=== PATIENT | female | born 1940 | race Caucasian/White ===

== ENCOUNTER 2018-10-16 11:15 | Outpatient (RCR) | payer MEDICARE, OTHER, SELFPAY ==
--- NOTE | 2018-10-02 14:02 | PT.OIE ---
Current Diagnoses Benign paroxysmal vertigo, right ear (10/02/18) Dizziness and giddiness (10/02/18) Provider Visit Care Team Role Provider Type Steven Hewitt DO Primary Care Provider Non-Staff Specialty: Family Practice Address: [address], [phone] Email: Steve Rutherford MD Attending Provider Physician Specialty: Ear, Nose, Throat Address: [address] [place] [address], [id number] Email: Physical Therapy Initial Evaluation PT-OP-A Visit Information Start: 10/02/18 13:47 Freq: Status: Active Protocol: Document 10/02/18 09:45 DCW (Rec: 10/02/18 14:02 DCW [id number]) Out-Patient Physical Therapy Visit Information Visit Information Visit Type Initial Evaluation Visit Start Time 09:45 Visit Stop Time 10:25 Total Visit Minutes 40 Visit Number [address] ENGINEER Visits 0 Evaluation Information Evaluation Date 10/02/18 PT-OP-B Current Condition Start: 10/02/18 13:47 Freq: Status: Active Protocol: Document 10/02/18 09:45 DCW (Rec: 10/02/18 14:02 DCW [id number]) Current Condition History of Current Condition Onset Date 2 years Current Complaints Position-dependent vertigo History of Current Condition Pt is a 78 year old female complaining of a two year history of motion-induced vertigo. Pt reports episodes last about 30 seconds. Symptoms are provoked by looking up, laying back in bed , rolling in bed, or bending over to pet her dogs. Pt admits that when her symptoms began two years ago, she had been in her shower, leaned her head back, and fell and hit her head. Pt is, however, unsure if the dizziness began in the shower and that was the cause of her fall, or if the dizziness began after she hit her head in the fall. Pt denies recent hearing changes, tinnitus, diplopia, dysarthria, discoordination, or decreased mentation/ consciousness. Pt reports symptoms are waxing/waning in nature. Pt denies hx of arrhythmia, head trauma, seizure, back/neck problems, CVA, anxiety/panic disorders, or excessive smoking or drinking. Pt does report a past history of HTN, hyperlipidemia, and diabetes, however reports that they are all well controlled with medication. Prior Functional Status Baseline Function- ADL's Independent Baseline Function- Mobility Independent Current Functional Impairments (Reported) Functional Limitations- ADL's Rotational vertigo with position changes PT-OP-C Subjective Start: 10/02/18 13:47 Freq: Status: Active Protocol: Document 10/02/18 09:45 DCW (Rec: 10/02/18 14:02 DCW [id number]) OP-PT Subjective Patient Comments Patient Reported Progress Same Patient Questionnaires Dizziness Handicap Inventory DHI Score 36% DHI Functional Impairment 20 to 39% Impaired (Score 20- 39) PT-OP-O Vestibular Start: 10/02/18 13:47 Freq: Status: Active Protocol: Document 10/02/18 09:45 DCW (Rec: 10/02/18 14:02 DCW [id number]) Vestibular Assessment Screening Tests Vestibular Artery Screen Negative Auditory Tests Wilson Test Negative Rinne Test Negative Air Conduction Results Equal Visual Testing Smooth Pursuits Horizontal Negative Smooth Pursuits Vertical Negative Saccades Horizontal Negative Gaze Evoked Nystagmus With Fixation Negative Gaze Evoked Nystagmus Without Fixation Negative Heave Test Positive Bilateral Thrust Head Positive Bilateral Head Shake Negative Spontaneous Nystagmus Negative Positional Testing Thomas-Hallpike Positive Right Negative Left Upbeating < 60 Seconds Comments Vestibular Comments Thrust/heave tests mildly positive bilaterally PT-OP-Q Treatments Start: 10/02/18 13:47 Freq: Status: Active Protocol: Document 10/02/18 09:45 DCW (Rec: 10/02/18 14:02 DCW [id number]) Canalithic Repositioning BPPV Treatment [place] Affected Canal(s) Right posterior Reps x2 Comments First rep: Symptoms in 1st and 3rd positions Second rep: No symptoms PT-OP-T Assessment and Plan Start: 10/02/18 13:47 Freq: Status: Active Protocol: Document 10/02/18 09:45 DCW (Rec: 10/02/18 14:02 DCW [id number]) Physical Therapy Assessment Rehab Potential Rehabilitation Potential Excellent Evaluation Complexity Number of Personal Factors/Comorbidities 1-2 Number of Body Systems Impaired 1-2 Clinical Presentation at Evaluation Unstable Impairments Impairments Balance Functional Activities Gait Vestibular Goals Three Impairment Pt scored 36% disability on DHI Short Term Goal (STG) Pt to score <10% disability on DHI STG Duration 10/16/18 Two Impairment Positive R [place]-Hallpike Short Term Goal (STG) Negative Hallpike bilaterally STG Duration 10/16/18 One Impairment Pt experiences vertigo with rolling in bed Short Term Goal (STG) Pt to experience no episodes of vertigo with position changes STG Duration 10/16/18 Assessment Summary Assessment During right [place]-Hallpike test , pt complained of vertigo and demonstrated up-beating, torsional nystagmus lasting approximately 10 seconds, consistent with diagnosis of right-sided posterior canal BPPV, canalithiasis-type. Pt was treated with a right-sided Mahogany maneuver. Pt complained of symptoms in the first and third position, which is normally indicative of a successful treatment. Further positional testing was negative. Pt was educated on BPPV, expectations for treatment, possible recurrence , and post-Mahogany restrictions. Pt to return in ~1 week for a follow-up appointment, and intermittently afterward as indicated for treatment of BPPV. Physical Therapy Plan Frequency and Duration Frequency of Treatment as indicated for Tx Duration of Treatment 6 weeks Plan of Care Start Date 10/02/18 Plan of Care End Date 11/13/18 Therapeutic Interventions Therapeutic Interventions Canalithic Repositioning Manual Therapy Neuromuscular Re-education Vestibular Rehabilitation Next Visit Focus/Plan Next Note Type Treatment Note Next Visit Plan Positional re-testing, CRM as indicated.
--- NOTE | 2018-10-02 14:02 | PT.OPPOC ---
Current Diagnoses Benign paroxysmal vertigo, right ear (10/02/18) Dizziness and giddiness (10/02/18) Provider Visit Care Team Role Provider Type Steven Hewitt DO Primary Care Provider Non-Staff Specialty: Family Practice Address: [address] [place] [address], [phone] Email: Steve Rutherford MD Attending Provider Physician Specialty: Ear, Nose, Throat Address: [address] [place] [address], [id number] Email: Plan Of Care PT-OP-T Assessment and Plan Start: 10/02/18 13:47 Freq: Status: Active Protocol: Document 10/02/18 09:45 DCW (Rec: 10/02/18 14:02 DCW [id number]) Physical Therapy Assessment Rehab Potential Rehabilitation Potential Excellent Evaluation Complexity Number of Personal Factors/Comorbidities 1-2 Number of Body Systems Impaired 1-2 Clinical Presentation at Evaluation Unstable Impairments Impairments Balance Functional Activities Gait Vestibular Goals Three Impairment Pt scored 36% disability on DHI Short Term Goal (STG) Pt to score <10% disability on DHI STG Duration 10/16/18 Two Impairment Positive R Thomas-Hallpike Short Term Goal (STG) Negative Hallpike bilaterally STG Duration 10/16/18 One Impairment Pt experiences vertigo with rolling in bed Short Term Goal (STG) Pt to experience no episodes of vertigo with position changes STG Duration 10/16/18 Assessment Summary Assessment During right Thomas-Hallpike test , pt complained of vertigo and demonstrated up-beating, torsional nystagmus lasting approximately 10 seconds, consistent with diagnosis of right-sided posterior canal BPPV, canalithiasis-type. Pt was treated with a right-sided Mahogany maneuver. Pt complained of symptoms in the first and third position, which is normally indicative of a successful treatment. Further positional testing was negative. Pt was educated on BPPV, expectations for treatment, possible recurrence , and post-Mahogany restrictions. Pt to return in ~1 week for a follow-up appointment, and intermittently afterward as indicated for treatment of BPPV. Physical Therapy Plan Frequency and Duration Frequency of Treatment as indicated for Tx Duration of Treatment 6 weeks Plan of Care Start Date 10/02/18 Plan of Care End Date 11/13/18 Therapeutic Interventions Therapeutic Interventions Canalithic Repositioning Manual Therapy Neuromuscular Re-education Vestibular Rehabilitation Next Visit Focus/Plan Next Note Type Treatment Note Next Visit Plan Positional re-testing, CRM as indicated. Plan of Care Dates Plan of Care Start Date 10/02/18 Plan of Care End Date 11/13/18 Please Sign and Return: I have reviewed this Plan of Care and certify that the skilled therapy services above are required to meet the patient?s needs. Physician Signature Date Printed Name and Credentials Clinical Instructor Signature Printed Name and Credentials
--- NOTE | 2018-10-16 11:42 | PT.OTN ---
Current Diagnoses Dizziness and giddiness (10/16/18) Physical Therapy Treatment Note PT-OP-A Visit Information Start: 10/02/18 13:47 Freq: Status: Active Protocol: Document 10/16/18 11:15 DCW (Rec: 10/16/18 11:41 DCW [id number]) Out-Patient Physical Therapy Visit Information Visit Information Visit Type Treatment Note Visit Start Time 11:15 Visit Stop Time 11:40 Total Visit Minutes 25 Visit Number 2 Evaluation Information Evaluation Date 10/02/18 PT-OP-B Current Condition Start: 10/02/18 13:47 Freq: Status: Active Protocol: Document 10/02/18 09:45 DCW (Rec: 10/02/18 14:02 DCW [id number]) Current Condition History of Current Condition Onset Date 2 years Current Complaints Position-dependent vertigo History of Current Condition Pt is a 78 year old female complaining of a two year history of motion-induced vertigo. Pt reports episodes last about 30 seconds. Symptoms are provoked by looking up, laying back in bed , rolling in bed, or bending over to pet her dogs. Pt admits that when her symptoms began two years ago, she had been in her shower, leaned her head back, and fell and hit her head. Pt is, however, unsure if the dizziness began in the shower and that was the cause of her fall, or if the dizziness began after she hit her head in the fall. Pt denies recent hearing changes, tinnitus, diplopia, dysarthria, discoordination, or decreased mentation/ consciousness. Pt reports symptoms are waxing/waning in nature. Pt denies hx of arrhythmia, head trauma, seizure, back/neck problems, CVA, anxiety/panic disorders, or excessive smoking or drinking. Pt does report a past history of HTN, hyperlipidemia, and diabetes, however reports that they are all well controlled with medication. Prior Functional Status Baseline Function- ADL's Independent Baseline Function- Mobility Independent Current Functional Impairments (Reported) Functional Limitations- ADL's Rotational vertigo with position changes PT-OP-C Subjective Start: 10/02/18 13:47 Freq: Status: Active Protocol: Document 10/16/18 11:15 DCW (Rec: 10/16/18 11:42 DCW [id number]) OP-PT Subjective Patient Comments Patient Comments Pt reports she has not had any noticeable symptoms since her evaluation two weeks ago. PT-OP-O Vestibular Start: 10/02/18 13:47 Freq: Status: Active Protocol: Document 10/16/18 11:15 DCW (Rec: 10/16/18 11:41 DCW [id number]) Vestibular Assessment Positional Testing [place]-Hallpike Positive Right Negative Left Upbeating < 60 Seconds PT-OP-Q Treatments Start: 10/02/18 13:47 Freq: Status: Active Protocol: Document 10/16/18 11:15 DCW (Rec: 10/16/18 11:41 DCW [id number]) Canalithic Repositioning BPPV Treatment Mahogany Affected Canal(s) Right posterior Reps x2 Comments First rep: Symptoms in 1st and 3rd positions Second rep: Very mild symptoms in 1st position PT-OP-T Assessment and Plan Start: 10/02/18 13:47 Freq: Status: Active Protocol: Document 10/16/18 11:15 DCW (Rec: 10/16/18 11:41 DCW [id number]) Physical Therapy Assessment Impairments Impairments Balance Functional Activities Gait Vestibular Goals Three Impairment Pt scored 36% disability on DHI Short Term Goal (STG) Pt to score <10% disability on DHI STG Duration 10/31/18 Two Impairment Positive R [place]-Hallpike Short Term Goal (STG) Negative Hallpike bilaterally STG Duration 10/31/18 One Impairment Pt experiences vertigo with rolling in bed Short Term Goal (STG) Pt to experience no episodes of vertigo with position changes STG Duration 10/31/18 Assessment Summary Assessment Pt again demonstrated a positive right rand-hallpike test, less severe vs last visit, but responded well to treatment. Second test was very mildly positive, with nystagmus present for approximately 5 beats. A third test was not performed, as it would be unreliable due to the fatigable nature of the symptoms. Physical Therapy Plan Frequency and Duration Frequency of Treatment as indicated for Tx Duration of Treatment 6 weeks Plan of Care Start Date 10/02/18 Plan of Care End Date 11/13/18 Therapeutic Interventions Therapeutic Interventions Canalithic Repositioning Manual Therapy Neuromuscular Re-education Vestibular Rehabilitation Next Visit Focus/Plan Next Note Type Treatment Note Next Visit Plan Positional re-testing, CRM as indicated.
--- NOTE | 2018-12-22 10:54 | PT.OPDS ---
Current Diagnoses Dizziness and giddiness (10/16/18) Provider Visit Care Team Role Provider Type Steven Hewitt DO Primary Care Provider Non-Staff Specialty: Family Practice Address: [address], [address] Email: Steve Rutherford MD Attending Provider Physician Specialty: Ear, Nose, Throat Address: [address] [place] [address], [id number] Email: Visit Number Visit Number 2 Discharge Summary PT-OP-B Current Condition Start: 10/02/18 13:47 Freq: Status: Active Protocol: Document 10/02/18 09:45 DCW (Rec: 10/02/18 14:02 DCW [id number]) Current Condition History of Current Condition Onset Date 2 years Current Complaints Position-dependent vertigo History of Current Condition Pt is a 78 year old female complaining of a two year history of motion-induced vertigo. Pt reports episodes last about 30 seconds. Symptoms are provoked by looking up, laying back in bed , rolling in bed, or bending over to pet her dogs. Pt admits that when her symptoms began two years ago, she had been in her shower, leaned her head back, and fell and hit her head. Pt is, however, unsure if the dizziness began in the shower and that was the cause of her fall, or if the dizziness began after she hit her head in the fall. Pt denies recent hearing changes, tinnitus, diplopia, dysarthria, discoordination, or decreased mentation/ consciousness. Pt reports symptoms are waxing/waning in nature. Pt denies hx of arrhythmia, head trauma, seizure, back/neck problems, CVA, anxiety/panic disorders, or excessive smoking or drinking. Pt does report a past history of HTN, hyperlipidemia, and diabetes, however reports that they are all well controlled with medication. Prior Functional Status Baseline Function- ADL's Independent Baseline Function- Mobility Independent Current Functional Impairments (Reported) Functional Limitations- ADL's Rotational vertigo with position changes PT-OP-C Subjective Start: 10/02/18 13:47 Freq: Status: Active Protocol: Document 10/16/18 11:15 DCW (Rec: 10/16/18 11:42 DCW [id number]) OP-PT Subjective Patient Comments Patient Comments Pt reports she has not had any noticeable symptoms since her evaluation two weeks ago. PT-OP-O Vestibular Start: 10/02/18 13:47 Freq: Status: Active Protocol: Document 10/16/18 11:15 DCW (Rec: 10/16/18 11:41 DCW [id number]) Vestibular Assessment Positional Testing Thomas-Hallpike Positive Right Negative Left Upbeating < 60 Seconds PT-OP-T Assessment and Plan Start: 10/02/18 13:47 Freq: Status: Active Protocol: Document 12/22/18 10:51 DCW (Rec: 12/22/18 10:54 DCW [id number]) Physical Therapy Assessment Goals Three Impairment Pt scored 36% disability on DHI Short Term Goal (STG) Pt to score <10% disability on DHI STG Duration 10/31/18 Two Impairment Positive R Thomas-Hallpike Short Term Goal (STG) Negative Hallpike bilaterally STG Duration 10/31/18 One Impairment Pt experiences vertigo with rolling in bed Short Term Goal (STG) Pt to experience no episodes of vertigo with position changes STG Duration 10/31/18 Assessment Summary Assessment Following her follow-up visit, pt called the clinic and cancelled all remaining appointments, as she was feeling better. She has now not been seen in more than two months, and will be discharged from skilled vestibular therapy. Physical Therapy Plan Discharge Physical Therapy Discharge Reasons No Longer Attending PT Next Visit Focus/Plan Next Note Type Discharge Summary
== END 2018-10-16 12:15 ==
LOC: PHYS 11:15
PROVIDERS: PCP Family Medicine; Visit Provider Otolaryngology
DX: R42 Dizziness and giddiness (principal)
CPT/HCPCS: 95992; 97140; 97161

== ENCOUNTER 2023-07-18 14:48 | Emergency (ER) | payer MEDICARE, OTHER, SELFPAY ==
[2023-07-18 14:55] VITALS: BP 196/90; PULSE 110; RESP 18; TEMP 36.4; O2SAT 96; BMI 20.1
[2023-07-18 15:10] VITALS: BP 179/106
--- NOTE | 2023-07-18 15:12 | PC.NURSE ---
Pt came to the emergency dept today because she started have a nose bleed while at her [employer] and she takes eliquis. pt report no pain, but does state that she has been a little nauseous due to swallowing blood. pt denies any dizziness/lightheadedness. pt has hx of afib and htn. a&ox4
--- NOTE | 2023-07-18 15:19 | ED.GENADULT ---
HPI - General Adult General Chief complaint: Nasal Problem Stated complaint: bloody nose/[facility] sent Time Seen by Provider: 07/18/23 15:14 Source: patient Mode of arrival: Wheelchair History of Present Illness HPI narrative: Patient is an 83-year-old female. She is on Eliquis. Earlier today she started to have a nosebleed. She was seen at an outside walk-in clinic. Had a rhino rocket placed in the right nostril. She was sent to the emergency department because of continued bleeding. She denies any trauma. She has had nosebleeds in the past. Related Data Allergies Allergy/AdvReac Type Severity Reaction Status Date / Time No Known Drug Allergies Allergy Verified 07/18/23 14:59 Review of Systems ENT Ears, Nose, Mouth, and Throat: Reports system reviewed and no additional complaints, except as documented Respiratory Respiratory: Reports system reviewed and no additional complaints, except as documented Hematologic/Lymphatic On Anticoagulants: Yes Patient History Social History Smoking Status: Former smoker Smoking Status: Former smoker alcohol intake frequency: 0-2 drinks per day Substance Use Type: does not use Exam Initial Vital Signs Initial Vital Signs: Vital Signs Temperature 97.5 F L 07/18/23 14:55 Pulse Rate 110 H 07/18/23 14:55 Respiratory Rate 18 07/18/23 14:55 Blood Pressure 196/90 H 07/18/23 14:55 Pulse Oximetry 96 07/18/23 14:55 Oxygen Delivery Method Room Air 07/18/23 14:55 Const General: cooperative and comfortable HENMT Nose: epistaxis and other (Oozing from left nostril. Rhino rocket in place right) Resp Effort & Inspection: normal respiratory effort Skin General: no rashes or lesions noted Neuro General: patient alert, patient awake, patient oriented x3 and moves all extremities Extrem General: capillary refill normal Procedures Epistaxis Control Nostril: right Nose Prepped With: oxymetazoline Direct Inspection: yes Clots Removed by: blowing nose Device Inserted: nasal tampon Device Size: 75 Patient Tolerated Procedure: well Course Orders Ordered: Discontinued Medications Tranexamic Acid (Tranexamic Acid 1,000 Mg Vial) 1,000 mg TOP NOW ONE Stop: 07/18/23 15:19 Last Admin: 07/18/23 15:27 Dose: 1,000 mg Documented By: DONIS Vital Signs Vital signs: Vital Signs - 8 hr 07/18/23 14:55 07/18/23 15:10 07/18/23 18:06 Temperature 97.5 F L Pulse Rate 110 H 105 H Respiratory Rate 18 16 Blood Pressure 196/90 H 179/106 H 189/108 H Pulse Oximetry 96 98 Oxygen Delivery Method Room Air Room Air Medical Decision Making MDM Narrative Medical decision making narrative: Patient arrived with a nasal tampon in her right nose however it was mcfp coming out upon arrival. We did try a nasal clamp in addition to this to begin with however all of this was unsuccessful. The nasal tampon was removed. Had the patient blow her nose. Initially a 5.5 nasal tampon soaked in TXA was replaced however had a difficult time keeping this in place and it eventually came out on its own as well. Then re-attempted with a 7.5 nasal tampon once again soaked when TXA. After continued observation the nasal bleeding has stopped. There was no respiratory distress. We will leave the nasal tampon in place. Will have her contact ENT for follow-up she was given return precautions. Discharge Plan Departure Patient Disposition: Home Clinical Impression: Epistaxis Instructions: DI for Nosebleed Activity Restrictions/Additional Instructions: I do recommend that you contact Dr. Rutherford at the number provided below for follow-up on Friday. To try to be careful with the packing that is in your right nostril. Despite taking care it may come out on its own. That is okay if the bleeding has stopped. I do recommend that you still follow-up with Dr. Rutherford even if this happens. If it starts to bleed again please return to the emergency department for further evaluation. Referrals: Steve Rutherford MD [Physician] - Steven Hewitt DO [Primary Care Provider] - Stand Alone Forms: Patient Portal/API
[2023-07-18] MEDS: TRANEXAMIC ACID 1,000 MG VIAL 1000 MG TOP (15:27)
--- NOTE | 2023-07-18 16:36 | PC.NURSE ---
Removed nasal clamp as per dr mcdowell's request. Nose still bleeding.
[2023-07-18 18:06] VITALS: BP 189/108; PULSE 105; RESP 16; O2SAT 98
== END 2023-07-18 18:07 | disposition home or self-care (01) ==
PROVIDERS: Emergency Provider Emergency Medicine; PCP Family Medicine
DX: R04.0 Epistaxis (principal); Z79.01 Long term (current) use of anticoagulants
CPT/HCPCS: 30901; 30903; 99282; 99283

== ENCOUNTER 2024-01-21 10:36 | Emergency (ER) | payer MEDICARE, OTHER, SELFPAY ==
[2024-01-21] VITALS (11 sets, daily range): BP systolic 128–198; BP diastolic 62–107; PULSE 99–116; RESP 14–18; TEMP 36.9; O2SAT 94–99; BMI 24.3
--- NOTE | 2024-01-21 11:06 | ED_ITS ---
HPI - Extremity Problem <Marylou Dyson PA-C - Last Filed: 01/21/24 19:15> General Chief complaint: Extremity Problem,Nontraumatic Stated complaint: BIG LUMP ON RT ELBOW Time Seen by Provider: 01/21/24 10:47 Source: patient Mode of arrival: Family Vehicle History of Present Illness HPI Narrative: This ia an 83-year-old female who lives at home with a caregiver, who has a history of hyperlipidemia, hypertension, atrial fibrillation, reports hx of two aortic aneurysms who comes in to the ER today with her caregiver with concern for right elbow swelling for the last 2 days. Patient states it has not particu larly painful perhaps at most a 2/10 and she feels she can move her arm normally and use it normally. She denies any known injury but states that she often stands in the kitchen with her elbow resting on the counter. She is right- handed. She does not believe that she sustained any puncture wounds or abrasions to her elbow recently. She states she has never had something like this happen before. She states she prefers not to take NSAID medications as they ?make me bleed? she used to be on a blood thinner however she stopped taking this after having problems with epistaxis. She has not taken her daily blood pressure medications including her metoprolol which she takes 25 mg ER b.i.d. and her losartan 25 mg daily. She denies any other complaints or concerns including recent fevers, chills, nausea, vomiting change in appetite chest pain abdominal pain back pain or any other symptoms or concerns. Her caregiver concurs that there have been no other changes in her normal activities or condition. Related Data Home Medications Medication Instructions Recorded Confirmed atorvastatin 20 mg tablet 80 mg PO ONCE PM 01/21/24 01/21/24 cholecalciferol (vitamin D3) 125 125 mcg PO 01/21/24 mcg (5,000 unit) capsule levothyroxine 50 mcg tablet 50 mcg PO QAM 01/21/24 01/21/24 losartan 25 mg tablet 25 mg PO DAILY 01/21/24 01/21/24 metoprolol succinate 25 mg 25 mg PO BID 01/21/24 01/21/24 tablet,extended release 24 hr Previous Rx's Medication Instructions Recorded cephalexin 500 mg capsule 500 mg PO Q8H 7 days #21 caps 01/21/24 prednisone 20 mg tablet 40 mg (2 x 20 mg) PO DAILY 01/21/24 olecranon bursitis 4 days #8 tabs Allergies Allergy/AdvReac Type Severity Reaction Status Date / Time No Known Drug Allergies Allergy Verified 07/18/23 14:59 Review of Systems <Marylou Dyson PA-C - Last Filed: 01/21/24 19:15> Review of Systems Narrative: See HPI Patient History <Marylou Dyson PA-C - Last Filed: 01/21/24 19:15> Social History Smoking Status: Former smoker Smoking Status: Former smoker alcohol intake frequency: 0-2 drinks per day Substance Use Type: does not use Exam <Marylou Dyson PA-C - Last Filed: 01/21/24 19:15> Narrative Exam Narrative: GENERAL: [83] year old patient appears stated age. Slim with poor muscle development well-appearing patient, in no apparent distress. HEAD: Atraumatic. Normocephalic. EYES: Pupils equal round and reactive. Extraocular motions intact. No scleral icterus. No injection or drainage. ENT: Nose without bleeding, purulent drainage. Throat without erythema, tonsillar hypertrophy or exudate. Airway patent. NECK: Trachea midline. CARDIOVASCULAR: Slightly rapid irregularly irregular rate and rhythm without murmurs, gallops, or rubs. RESPIRATORY: Clear to auscultation. Breath sounds equal bilaterally. No wheezes, rales, or rhonchi. GASTROINTESTINAL: Abdomen soft, non-tender, nondistended. EXTREMITIES: The olecranon of the right elbow is significantly swollen with mild erythema and heat present, it is not appreciably tender to palpation. Patient has full active range of motion both active and passive range of motion are pain-free. Strong and equal economics instructor. There is no streaking or discoloration traveling from the elbow up the arm. No edema or joint tenderness. NEURO: AOx3. SKIN: No rash or erythema of visible areas Initial Vital Signs Initial Vital Signs: Vital Signs Pulse Oximetry 94 01/21/24 10:42 <Franchesca Moore DO - Last Filed: 01/24/24 04:42> Initial Vital Signs Initial Vital Signs: Vital Signs Pulse Oximetry 94 01/21/24 10:42 Course <Marylou Dyson PA-C - Last Filed: 01/21/24 19:15> Orders Ordered: Discontinued Medications Losartan Potassium (Losartan 25 Mg Tablet) 25 mg PO NOW ONE Stop: 01/21/24 11:30 Last Admin: 01/21/24 11:40 Dose: 25 mg Documented By: JUAN Metoprolol Succinate (Metoprolol Er 25 Mg Tablet) 25 mg PO NOW ONE Stop: 01/21/24 11:29 Last Admin: 01/21/24 11:39 Dose: 25 mg Documented By: JUAN Vital Signs Vital signs: Vital Signs - 8 hr 01/21/24 11:30 01/21/24 11:39 01/21/24 11:40 Pulse Rate 112 H 113 H 113 H Respiratory Rate Blood Pressure 198/107 H 198/107 H Pulse Oximetry 97 Oxygen Delivery Method 01/21/24 12:00 01/21/24 12:16 01/21/24 12:16 Pulse Rate 115 H 107 H 111 H Respiratory Rate Blood Pressure 149/79 H Pulse Oximetry 96 97 Oxygen Delivery Method 01/21/24 12:16 01/21/24 12:30 01/21/24 12:30 Pulse Rate 104 H Respiratory Rate Blood Pressure 146/79 H 128/67 Pulse Oximetry 97 Oxygen Delivery Method 01/21/24 13:05 Pulse Rate 101 H Respiratory Rate 14 Blood Pressure 128/62 Pulse Oximetry 97 Oxygen Delivery Method Room Air <Franchesca Moore DO - Last Filed: 01/24/24 04:42> Orders Ordered: Discontinued Medications Losartan Potassium (Losartan 25 Mg Tablet) 25 mg PO NOW ONE Stop: 01/21/24 11:30 Last Admin: 01/21/24 11:40 Dose: 25 mg Documented By: JUAN Metoprolol Succinate (Metoprolol Er 25 Mg Tablet) 25 mg PO NOW ONE Stop: 01/21/24 11:29 Last Admin: 01/21/24 11:39 Dose: 25 mg Documented By: JUAN Vital Signs Vital signs: Vital Signs - 8 hr 01/21/24 11:30 01/21/24 11:39 01/21/24 11:40 Pulse Rate 112 H 113 H 113 H Respiratory Rate Blood Pressure 198/107 H 198/107 H Pulse Oximetry 97 Oxygen Delivery Method 01/21/24 12:00 01/21/24 12:16 01/21/24 12:16 Pulse Rate 115 H 107 H 111 H Respiratory Rate Blood Pressure 149/79 H Pulse Oximetry 96 97 Oxygen Delivery Method 01/21/24 12:16 01/21/24 12:30 01/21/24 12:30 Pulse Rate 104 H Respiratory Rate Blood Pressure 146/79 H 128/67 Pulse Oximetry 97 Oxygen Delivery Method 01/21/24 13:05 Pulse Rate 101 H Respiratory Rate 14 Blood Pressure 128/62 Pulse Oximetry 97 Oxygen Delivery Method Room Air MDM - Extremity (Nontraumatic) <Marylou Dyson PA-C - Last Filed: 01/21/24 19:15> Differential Diagnosis Differential diagnosis: Likely gout, cellulitis and other (Olecranon bursitis) Imaging Data Extremity x-ray #1: My Impression: Agree with Radiology interpretation Radiologist's Impression: [address] [address] XRay Report Signed Patient: Radha Louise MR#: [id number] : 1940 Acct:[id number] Age/Sex: 83 / F Date of Service: 01/21/24 Loc: ED Accession Number: [id number] Procedure: XR elbow RT min 3V Ordering Provider: Marylou Dyson P.A-C PROCEDURE: XR ELBOW RT MIN 3V INDICATIONS: elbow pain/swelling no known injury TECHNIQUE: 3 views of the elbow were acquired. COMPARISON: None. FINDINGS: Bones: No fractures or dislocations. No suspicious bony lesions. Soft tissues: Marked dorsal soft tissue swelling over olecranon is seen. No elbow joint effusion. No suspicious soft tissue calcifications. IMPRESSION: 1. No acute elbow fracture or dislocation. No significant joint effusion. 2. Significant dorsal elbow soft tissue swelling which may represent soft tissue hematoma versus fluid distending olecranon bursa and bursitis. Dictated by: Jesse Ronquillo M.D. on 01/21/2024 at 11:26 Approved by: Jesse Ronquillo M.D. on 01/21/2024 at 11:27 [facility] [place] Narrative Medical decision making narrative: 83-year-old female presents with concern for right elbow pain for the past 2 days leans on the counter frequently in the kitchen but otherwise no trauma known. Exam today is consistent with an olecranon bursitis. X-rays obtained show no bony abnormality soft tissue superficial swelling only. Based on patient's history exam low suspicion for infectious process however this is a superficial bursitis with erythema and heat and this is certainly a possibility. Patient has no history of similar no history of gout. She was notably tachycardic and hypertensive when she came into the ER however had not taken any of her morning medications including her metoprolol and her losartan. Patient was given her losartan and metoprolol which improved her blood pressure back to baseline and her AFib rate also improved to the 90s prior to discharge. Patient declines NSAID medications and given her age and history of bleeding reasonable to defer these, prescription for prednisone as well as cephalexin. Exam is not suggestive of a septic joint she has good normal active range of motion without pain. Advised to follow up closely with PCP, Jonathan wrap for compression minimize use of this arm until the swelling improves, elevate as able. Return precautions provided, follow-up plan discussed, all questions answered.. Discharge Plan Departure Patient Disposition: Home Clinical Impression: Bursitis, olecranon Qualifiers: Laterality: right Qualified Code(s): M70.21 - Olecranon bursitis, right elbow Activity Restrictions/Additional Instructions: *You have been diagnosed with [olecranon bursitis] *What to do: *Please continue to take your regular medications as directed. [2 ] New medication prescriptions sent to your pharmacy: [Cephalexin and prednisone] [ ] New medication written as a paper prescription [ ] No new medications given *Please follow up with your primary care provider in 2-3 days, call for an appointment. Let them know you were seen in the Emergency Department and that we ask that you be seen in follow up. We will electronically transmit a record of today's note if your PCP is in our system. Your x-rays today looked okay, it does appear that this is a superficial inflammation or less likely but possibly an infection of your olecranon bursa. Occasionally the bursa can rupture which may have occurred in your case as you have a fair amount of swelling and fluid there. As a precaution I am placing you on antibiotics although I think this is more likely an inflammatory process. We discussed options for reducing the inflammation and swelling and because you do not take NSAIDs I am going to do a few days of steroid medicine for you. Both of these were sent to your pharmacy. When you came into the ER today your blood pressure was on the high side and your heart rate was also a bit elevated so we gave you your regular morning medications and these did improve. Please make sure you are taking all your regular medications at home as prescribed, and I would recommend he follow up closely with your primary care provider to recheck your elbow and see how it is doing. As we discussed with you and your caregiver, monitor for any worsening of your elbow including new or increasing pain difficulty moving her arm normally increased redness or heat or if you have any other symptoms such as fevers or chills or any other concerns please make sure you seek re-evaluation. We did place an Jonathan wrap today over the area a little bit of compression can be helpful for this and icing on and off as well maybe help to. Try to minimize use of this arm and excessive movement or pressure on the area of swelling and this will help the healing process. I hope you feel better soon. *If you do not have a primary care provider please contact the [facility] Resource line at [phone]. They will ask some questions about your medical history and help get you set up with a doctor in the community. *Return to Emergency Department if you should have any new, worsening or concerning symptoms, such as [fever greater than 101 F, shaking chills, worsening pain, persistent vomiting or other bothersome symptoms] Prescriptions: New cephalexin 500 mg capsule 500 mg PO Q8H 7 Days Qty: 21 0RF prednisone 20 mg tablet 40 mg PO DAILY 4 Days Qty: 8 0RF No Action atorvastatin 20 mg tablet 80 mg PO ONCE PM losartan 25 mg tablet 25 mg PO DAILY metoprolol succinate 25 mg tablet extended release 24 hr 25 mg PO BID levothyroxine 50 mcg tablet 50 mcg PO QAM cholecalciferol (vitamin D3) [D-3-5] 125 mcg (5,000 unit) Capsule 125 mcg PO Referrals: Steven Hewitt DO [Primary Care Provider] - Stand Alone Forms: Patient Portal/API ED Sign-out <Franchesca Moore DO - Last Filed: 01/24/24 04:42> Cosign ED Attending Svetlanaature Attestation: I was immediately available in the department for consultation.
[2024-01-21] MEDS: METOPROLOL ER 25 MG TABLET PO (11:39)
[2024-01-21] MEDS: LOSARTAN 25 MG TABLET PO (11:40)
--- NOTE | 2024-01-21 13:03 | PC.NURSE ---
patient is unaware when the swelling started. She leaned on her elbow and notice that is was painful. She looked in the mirror and noticed the swelling about a week ago. She denies pain until palpation and denies fever.
== END 2024-01-21 13:07 | disposition home or self-care (01) ==
PROVIDERS: Emergency Provider Student in an Organized Health Care Education/Training Program; PCP Family Medicine
DX: M70.21 Olecranon bursitis, right elbow (principal); Y93.89 Activity, other specified
CPT/HCPCS: 73080; 99283